=== PATIENT | female | born 1985 | race Caucasian/White ===

== ENCOUNTER 2018-03-11 00:08 | Emergency (ER) | payer MEDICAID, SELFPAY ==
[2018-03-11] VITALS (8 sets, daily range): BP systolic 87–116; BP diastolic 58–88; PULSE 65–95; RESP 14–23; TEMP 36.6; O2SAT 96–100; BMI 24.8
--- NOTE | 2018-03-11 00:24 | ED.DCSUM_ITS ---
- ER Visit Summary Date of Service: 03/11/18 Chief Complaint: Fall History of Present Illness: The patient is a 32 F who presents after a fall. She states that she slipped on the ice about 45 minutes before presentation. She hit her face and right shoulder. Her only complaint however is right shoulder pain. Although she did hit her head she denies any loss of consciousness or amnesia. No headache or vomiting. She is not on any anticoagulation. She denies any chest pain back pain abdominal pain shortness of breath or injury to other extremities. Physical Examination: Afebrile vitals are normal There is ecchymosis to the right cheek and right periorbital ecchymosis no mi dface instability no jaw malocclusion, no bond sign, no palpable skull fracture PERRL, EOMI, no hyphema Neck nontender to palpation Heart regular rate and rhythm Lungs are clear to auscultation Abdomen soft nontender nondistended Patient has painful limited range of motion of the right shoulder, no clavicle tenderness, no pain on palpation of the right elbow forearm wrist or hand normal sensation to light touch brisk capillary refill palpable radial pulse Active full range of motion without pain of the bilateral lower extremities and left upper extremity GCS of 15 with no focal or lateralizing neurological deficits Test Results: Right shoulder x-ray shows an anterior dislocation of the shoulder. Repeat x-ray shows successful reduction. Emergency Department Course and Treatment: I initially attempted the Kramer technique for shoulder reduction without sedation. This was unsuccessful. Therefore an IV was established. Discussed risks and benefits of procedural sedation. Patient consented. Patient underwent procedural sedation with a total of 140 mg of IV propofol. She was successfully reduced using traction countertraction technique. He was placed in a sling and swath. On reevaluation she is alert answers all questions appropriately and is able to sit up on her own. She is neurovascularly intact afterwards with normal sensation in the axillary nerve distribution as well as distally with brisk capillary refill and palpable radial pulse. She was referred to orthopedics for outpatient follow- up. She understands return for new or worsening symptoms. Given a [place] here for pain as well as a prescription for short course of the same. Treatment Plan: [] Disposition: Discharge Impression: Right shoulder dislocation Procedural sedation for shoulder reduction Right shoulder reduction This note was generated with weartolookation software. It may contain incorrect words, spelling, and punctuation that were not noted in review of the chart prior to signing ED Disposition - Plan for ED Patient: Chief Complaint: Fall Referrals: Arin Sage MD [Primary Care Provider] -
--- NOTE | 2018-03-11 00:30 | RAD_ITS ---
HISTORY: FALL. RIGHT SHOULDER PAIN COMPARISON: None FINDINGS: XR right Shoulder Min 2 Views: Anterior dislocation of the right humeral head. No definite Hill-Sachs compression fracture. Remaining visualized bones appear intact. The right AC joint is preserved. RAD/Shoulder min 2 Views IMPRESSION: 1. Anterior dislocation of the right humeral head. No fracture seen. at 0243 Reported and signed by: Esau Valderrama MD Electronically Signed: Esau Valderrama, at 2:41 EST Tel , Service support ,
--- NOTE | 2018-03-11 00:45 | ED.RN ---
PT REQUESTS SOMETHING FOR PAIN. DR. CAMACHO INFORMED.
[2018-03-11] MEDS: Propofol 200 MG/20 ML Vial IV BOLUS (01:27)
--- NOTE | 2018-03-11 01:30 | RAD_ITS ---
HISTORY: RIGHT SHOULDER POST REDUCTION COMPARISON: None FINDINGS: XR right Shoulder Min 2 Views: Anterior dislocation of the right humeral head. 2 views obtained following successful closed reduction of the glenohumeral joint. No fracture or other complication is seen. The remaining visualized bones appear intact. Right AC joint is preserved. RAD/Shoulder min 2 Views IMPRESSION: 1. Successful closed reduction right glenohumeral joint. No fracture or other complication is seen. at 0236 Reported and signed by: Esau Valderrama MD Electronically Signed: Esau Valderrama, at 2:35 EST Tel , Service support ,
[2018-03-11] MEDS: HYDROcodone Bitartrate/Apap 5/325 Tablet PO (01:36)
--- NOTE | 2018-03-11 01:58 | ED.DEP ---
ED Disposition - Plan for ED Patient: Chief Complaint: Fall Instructions: ED Mechanical Fall, ED Dislocation Shoulder Redu Prescriptions: Hydrocodone Bitart/Apap 5-325 [Raymond 5MG-325MG] 1 tab PO Q6H PRN PRN 3 Days #10 tab PRN Reason: Pain Referrals: Arin Sage MD [Primary Care Provider] - Guero Goyal MD [STAFF PHYSICIAN] -
== END 2018-03-11 02:13 | disposition home or self-care (01) ==
PROVIDERS: Emergency Provider Emergency Medicine; Family Provider Internal Medicine; PCP Internal Medicine
DX: S43.014A Anterior dislocation of right humerus, initial encounter (principal); S00.83XA Contusion of other part of head, initial encounter; S00.11XA Contusion of right eyelid and periocular area, initial encounter; W00.0XXA Fall on same level due to ice and snow, initial encounter; Y93.9 Activity, unspecified; Y92.9 Unspecified place or not applicable; Z72.0 Tobacco use
CPT/HCPCS: 23650; 73030; 99285; J7030; A4216

== ENCOUNTER 2018-07-03 05:35 | Day surgery (SDC) | payer MEDICAID, SELFPAY ==
[2018-03-11 00:09] VITALS: BMI 24.8
--- NOTE | 2018-07-03 05:45 | EKG12_ITS ---
Test Reason : PRE-OP Blood Pressure : / mmHG Vent. Rate : 062 BPM Atrial Rate : 062 BPM P-R Int : 152 ms QRS Dur : 078 ms QT Int : 378 ms P-R-T Axes : 044 055 054 degrees QTc Int : 383 ms Normal sinus rhythm Normal ECG No previous ECGs available Confirmed by DERIK MCFARLAND, ISABELLE ([id number]), photography editor STEVE GILES ([id number]) on 07/04/2018 11:29:48 AM Referred By: Florian Quintanilla Confirmed By:ISABELLE MORE MD
[2018-07-03 05:53] VITALS: BP 99/57; PULSE 74; RESP 14; TEMP 36.5; O2SAT 97; BMI 24.4
[2018-07-03 05:58] LABS: Internal QC Validated? YES +Cl - CLEAR BKGD; Pregnancy, Urine Negative Negative
[2018-07-03 06:26] LABS: Hematocrit 39.4 % (37-47); Hemoglobin 13.3 g/dl (12.0-15.0); Mean Corp Hgb Conc 33.8 g/gl (32-36); Mean Corpuscular Hgb 31.2 pg (27.0-32.0); Mean Corpuscular Volume 92.5 fL (81-99); Mean Platelet Vol. 9.9 fl (6.2-12.0); Platelet Count 209 K/mm3 (150-450); RBC Distribution Width CV 12.7 % (11.6-14.6); RBC Distribution Width SD 42.6 fl (35.1-43.9); Red Blood Count 4.26 M/mm3 (4.2-5.4); White Blood Count 7.5 K/mm3 (4.4-11.0)
[2018-07-03 06:34] LABS: Scan Indicated on CBC? Y/N NO
[2018-07-03] MEDS: Cefazolin 2 GM in 0.9% Normal Saline 100 ML IV (07:19)
[2018-07-03] MEDS: Bupiv/Epi 0.5% Mpf 30 ML Vial (07:50)
[2018-07-03] MEDS: Ketorolac 30 MG/ML Syringe IV (09:09)
--- NOTE | 2018-07-03 09:11 | PCM.OPRPT ---
Report of Operation Date of Procedure: 07/03/18 Pre-Operative Diagnosis: Unstable right shoulder with anterior labral tear and Hill-Sachs lesion of posterior humeral head Post-Operative Diagnosis: same Surgery/Procedure Performed:: Arthroscopic Bankhart repair right Description of Surgical Findings:: Surgery: Arthroscopic Bankhart repair right shoulder Pre-op dx: Anterior labral tear, large Hill-Sachs lesion and recurrrent instability right shoulder Post-op Dx: same Surgeon: Dr. Quintanilla Parts Identification Technician: Federico Coy PA-C Anesthesia: General with regional blockade for post op pain management Anesthesiologist: Dr. Rosado Drains: 0 Specimen: none EBL: minimal Complications: none Procedure: With appropriate informed consent and the right shoulder marked in pre-op, regional anesthetic was administered. The patient was brought to OR 1. General anesthesia was administered and pre-op antibiotics were given. The patient was positioned in the lateral decubitus position with the right side up. All bony prominences were well padded. The RUE was prepared and draped in the usual sterile fashion. Time out was taken and the arm was placed laterally with 10# of traction. The posterior portal was established and the diagnostic arthroscopy was begun. There was a large Hill-Sachs lesion on the posterior humeral head. A positive drive thru sign was noted. There were loose bodies in the axillary recess and the anterior labrum was torn from the anterior glenoid. Two anterior portals with cannulae were established. An arthroscopy shaver was used to remove axillary loose bodies and debride loose soft tissue from the anterior labrum. Working through the superior anterior portal, the labral tissue was elevated from the glenoid with a gently curved elevator. A ring curette was used to remove minimal cartilage from the anterior glenoid. Subsequently a rasp was used to prepare the anterior glenoid for repair of labral tissue. Thereafter, a 90 degree suture lasso was used to go through capsule and labral tissue inferiorly. A looped fiber wire suture was then passed using the wire passing suture that had been passed with the 90 degree lasso. A drill hole was made at approximately the 4 o'clock position on this right glenoid. An Arthrex suture tack anchor was then placed in the hole I had drilled to secure the suture and the anterior labrum. This process was then repeated twice more at approximately the 3 and 2 o'clock positions on the glenoid. This nicely resecured the labrum to the anterior glenoid. A drive-thru sign was no longer present. My assistant boys track coach, Mr. Coy, played a vital role in this procedure. He assisted in positioning the patient. He held and maneuvered the arm to provide optimal visualization during the procedure, Ultimately, he closed the surgical wounds, applied the post-op dressing and applied the Ultra sling. The patient was extubated and sent to PACU in stable condition. cream hauler: Federico oCy Type of Anesthesia:: General/Regional Anesthesiologist: Damian Rosado Estimated Blood Loss (mL): minimal - Admit VTE Documentation VTE Present on Admission: No VTE Mechan Device Prophylaxis: SCD's VTE Pharm Prophylaxis ordered?: No Reason prophylaxis not ordered:: Treatment Not Indicated
[2018-07-03 09:17] VITALS: BP 112/45; BP 99/57; PULSE 70; RESP 16; TEMP 36.8; O2SAT 99
[2018-07-03 09:30] VITALS: BP 102/63; BP 99/57; PULSE 70; RESP 16; O2SAT 97
--- NOTE | 2018-07-03 09:37 | OP.PCM_ITS ---
Report of Operation Date of Procedure: 07/03/18 Pre-Operative Diagnosis: Unstable right shoulder with anterior labral tear and Hill-Sachs lesion of posterior humeral head Post-Operative Diagnosis: same Surgery/Procedure Performed:: Arthroscopic Bankhart repair right Description of Surgical Findings:: Surgery: Arthroscopic Bankhart repair right shoulder Pre-op dx: Anterior labral tear, large Hill-Sachs lesion and recurrrent instability right shoulder Post-op Dx: same Surgeon: Dr. Quintanilla Channel Development Manager: Federico Coy PA-C Anesthesia: General with regional blockade for post op pain management Anesthesiologist: Dr. Rosado Drains: 0 Specimen: none EBL: minimal Complications: none Procedure: With appropriate informed consent and the right shoulder marked in pre-op, regional anesthetic was administered. The patient was brought to OR 1. General anesthesia was administered and pre-op antibiotics were given. The patient was positioned in the lateral decubitus position with the right side up. All bony prominences were well padded. The RUE was prepared and draped in the usual sterile fashion. Time out was taken and the arm was placed laterally with 10# of traction. The posterior portal was established and the diagnostic arthroscopy was begun. There was a large Hill-Sachs lesion on the posterior humeral head. A positive drive thru sign was noted. There were loose bodies in the axillary recess and the anterior labrum was torn from the anterior glenoid. Two anterior portals with cannulae were established. An arthroscopy shaver was used to remove axillary loose bodies and debride loose soft tissue from the anterior labrum. Working through the superior anterior portal, the labral tissue was elevated from the glenoid with a gently curved elevator. A ring curette was used to remove minimal cartilage from the anterior glenoid. Subsequently a rasp was used to prepare the anterior glenoid for repair of labral tissue. Thereafter, a 90 degree suture lasso was used to go through capsule and labral tissue inferiorly. A looped fiber wire suture was then passed using the wire passing suture that had been passed with the 90 degree lasso. A drill hole was made at approximately the 4 o'clock position on this right glenoid. An Arthrex suture tack anchor was then placed in the hole I had drilled to secure the suture and the anterior labrum. This process was then repeated twice more at approximately the 3 and 2 o'clock positions on the glenoid. This nicely resecured the labrum to the anterior glenoid. A drive-thru sign was no longer present. My assistant loan processor, Mr. Coy, played a vital role in this procedure. He assisted in positioning the patient. He held and maneuvered the arm to provide optimal visualization during the procedure, Ultimately, he closed the surgical wounds, applied the post-op dressing and applied the Ultra sling. The patient was extubated and sent to PACU in stable condition. account executive healthcare: Federico Coy Type of Anesthesia:: General/Regional Anesthesiologist: Damian Rosado Estimated Blood Loss (mL): minimal - Admit VTE Documentation VTE Present on Admission: No VTE Mechan Device Prophylaxis: SCD's VTE Pharm Prophylaxis ordered?: No Reason prophylaxis not ordered:: Treatment Not Indicated
[2018-07-03 09:45] VITALS: BP 99/57; BP 99/66; PULSE 68; RESP 16; O2SAT 93
[2018-07-03 10:00] VITALS: BP 100/64; BP 99/57; PULSE 63; RESP 16; TEMP 36.5; O2SAT 93
[2018-07-03 10:56] VITALS: BP 99/52; BP 99/57; PULSE 66; RESP 16; TEMP 36.7; O2SAT 94
== END 2018-07-03 11:31 | disposition home or self-care (01) ==
LOC: SDC 05:36 → AC 05:37
PROVIDERS: Anesthesiology; Family Provider Internal Medicine; PCP Internal Medicine; Referring Provider Orthopaedic Surgery; Visit Provider Orthopaedic Surgery
PROC: (CPT 29806; principal; 2018-07-03 06:55)
DX: S43.014A Anterior dislocation of right humerus, initial encounter (principal); M25.311 Other instability, right shoulder; S43.491A Other sprain of right shoulder joint, initial encounter; X58.XXXA Exposure to other specified factors, initial encounter; F41.9 Anxiety disorder, unspecified; F32.9 Major depressive disorder, single episode, unspecified; F17.210 Nicotine dependence, cigarettes, uncomplicated
CPT/HCPCS: 01630; 29806; 64415; 36415; 81025; 85027; 93005; J7120; J2405

== ENCOUNTER 2019-02-17 13:27 | Emergency (ER) | payer MEDICAID, SELFPAY ==
[2019-02-17 13:28] VITALS: BP 122/78; PULSE 106; RESP 18; TEMP 36.6; O2SAT 98; BMI 22.8
[2019-02-17 14:37] LABS: Mucous, Urine 0 SEEN /hpf (<or=2+); Red Blood Cells-Urine 0 SEEN /hpf (0-5)
[2019-02-17 14:43] LABS: Color, Urine Yellow (Yellow); Glucose, Dipstick Normal (Normal); Ketone-Dipstick 15 mg/dl (Negative); Leukocyte Esterase-Dipstick 500 /ul (Negative); Nitrite-Dipstick Positive (Negative); Occult Blood-Urine 250 /ul (Negative); Protein-Dipstick 30 mg/dl (Negative); Specific Gravity, Urine 1.015 (1.002-1.030); Urine Bilirubin Dipstick 1 mg/dL (Negative); Urine Clarity Sl. Cloudy (Clear); Urine Urobilinogen 1 mg/dl (Normal); Urine pH 6.5 (5.0 - 8.0)
[2019-02-17 14:45] LABS: Bacteria 2+ /hpf (None Seen); Squamous Epithelial Cells - UA 10-25 SEEN /hpf (5-10); White Blood Cells >100 SEEN /hpf (0-5)
--- NOTE | 2019-02-17 14:59 | ED.DCSUM_ITS ---
- ER Visit Summary Date of Service: 02/17/19 Chief Complaint: Fever History of Present Illness: The patient is a 33 F who presents with a fever. She has had symptoms like this for 4 days. She feels sweaty but has not documented a temperature at home. She does not have a thermometer. She took Tylenol and ibuprofen which has been helping. She states that when she urinates it feels funny. No cough. She did not get a flu shot this year. Denies any other symptoms. Physical Examination: Vital signs reviewed. HEENT exam unremarkable. Heart is regular rate and rhythm without murmurs. Lungs are clear to auscultation. Abdomen is soft and nontender. Extremities reveal no edema. Skin exam normal. Neurologic exam normal. Test Results: Influenza negative. UA reveals UTI Emergency Department Course and Treatment: Patient does have evidence of a UTI. I will treat her with Bactrim for 7 days. She will use Tylenol or ibuprofen at home. Treatment Plan: [] Disposition: Discharge Impression: UTI This note was generated with [employer] dictation software. It may contain incorrect words, spelling, and punctuation that were not noted in review of the chart prior to signing ED Disposition - Plan for ED Patient: Referrals: Arin Sage MD [Primary Care Provider] -
--- NOTE | 2019-02-17 15:00 | DCINST.ED_ITS ---
ED Disposition - Plan for ED Patient: Disposition: Home or Assisted Living Instructions: Understanding Urinary Tract Infections (UTIs) Prescriptions: Smz/Tmp Ds [Bactrim Ds] 1 tab PO BID #14 tab Transmission Status: Pending to [facility] #[id number] Referrals: Arin Sage MD [Primary Care Provider] - Additional Instructions: Your prescription was electronically transferred to [facility]
[2019-02-17] MEDS: Smz/Tmp Ds Tablet 1 TABLET PO (15:12)
--- NOTE | 2019-02-17 15:14 | ED.RN ---
DISCHARGE INSTRUCTIONS GIVEN TO AND REVIEWED WITH PATIENT, PATIENT DENIES QUESTIONS OR CONCERNS AND VOICES UNDERSTANDING OF DISCHARGE INSTRUCTIONS. PT AMBULATES OUT OF ROOM WITHOUT DIFFICULTY.
== END 2019-02-17 15:15 | disposition home or self-care (01) ==
PROVIDERS: Emergency Provider Emergency Medicine; Family Provider Internal Medicine; PCP Internal Medicine
DX: N39.0 Urinary tract infection, site not specified (principal); Z72.0 Tobacco use
CPT/HCPCS: 81001; 87804; 99283

== ENCOUNTER 2019-03-10 15:07 | Emergency (ER) | payer MEDICAID, SELFPAY ==
[2019-03-10 15:08] VITALS: BP 106/69; PULSE 112; RESP 16; TEMP 37.2; O2SAT 98; BMI 22.8
--- NOTE | 2019-03-10 15:33 | ED.VISSUMM ---
- ER Visit Summary Date of Service: 03/10/19 Chief Complaint: I think I have another UTI History of Present Illness: The patient is a 33 F recent UTI treated with 5 to 7 days of Bactrim twice daily. Said her symptoms got better. She developed a post antibiotic vaginal yeast infection for which she was placed on Diflucan. Now states she thinks her urinary tract symptoms have returned. She denies any recent hospitalization. She has had urinary frequency but no dysuria. No gross hematuria. Says she has some mild right flank discomfort with a low-grade fever 100. Today went to the urgent care who referred her to the emergency department. She denies nausea, vomiting or diarrhea. States her last menstrual period was 2 weeks ago. Denies any vaginal bleeding or discharge. Physical Examination: Young female no acute distress. Vital signs are stable and afebrile. HEENT exam unremarkable. Moist oral membranes. Neck nontender. No lymphadenopathy. Lungs clear to auscultation bilaterally. Heart regular rhythm no murmur rate about 100. Abdomen is soft. Nondistended. Normal bowel sounds. Very minimal deep right upper quadrant tenderness. No Eaton sign. No McBurney's point tenderness. No obstruction. Patient moving all 4 extremities. No rash. No edema. Back nontender. No CVA tenderness. Neurologically she is awake alert with no focal motor deficits. Test Results: CBC showed white count of 11. Hemoglobin 11.8. No bands. Chemistries unremarkable normal creatinine and gap. Liver enzymes alk phos 149. ALT 102. UA shows greater than white cells. 25-50 reds positive nitrates. It is contaminated but with her symptoms I think is consistent with a UTI. Serum test negative. Urine culture was also sent. Emergency Department Course and Treatment: Labs to be obtained along with a urinalysis. Her pain is right upper quadrant but she is concerned she has a UTI. Repeat exam patient doing well at 1718 p.m. She and I discussed her test results. She will be given 1 dose of Keflex p.o. here. Treatment Plan: Treat her UTI with Keflex twice daily for 10 days. And urine culture pending. Follow-up with your doctor. Disposition: Discharge Impression: Acute UTI This note was generated with CardiaLenation software. It may contain incorrect words, spelling, and punctuation that were not noted in review of the chart prior to signing ED Disposition - Plan for ED Patient: Referrals: Arin Sage MD [Primary Care Provider] -
[2019-03-10 16:04] LABS: Mucous, Urine 0 SEEN /hpf (<or=2+)
[2019-03-10 16:07] LABS: Color, Urine Yellow (Yellow); Glucose, Dipstick Normal (Normal); Ketone-Dipstick Negative (Negative); Leukocyte Esterase-Dipstick 500 /ul (Negative); Nitrite-Dipstick Positive (Negative); Occult Blood-Urine 50 /ul (Negative); Protein-Dipstick 30 mg/dl (Negative); Urine Bilirubin Dipstick Negative (Negative); Urine Clarity Cloudy (Clear); Urine Urobilinogen Normal (Normal); Urine pH 6.5 (5.0 - 8.0)
[2019-03-10 16:12] LABS: Absolute Neutrophil Count 8.1 X10^3/uL (2.0-7.7); Basophil# 0.03 X10^3/uL; Basophil% 0.3 % (0-1); Eosinophil# 0.03 X10^3/uL; Eosinophils% 0.3 % (0-5); Hematocrit 35.8 % (37-47); Hemoglobin 11.8 g/dL (12.0-15.0); Lymphocyte % 18.1 % (19-41); Mean Corpuscular Hgb 29.5 pg (27.0-32.0); Mean Corpuscular Volume 89.5 fL (81-99); Mean Platelet Vol. 9.5 fl (6.2-12.0); Monocyte# 0.87 X10^3/uL; Monocyte% 7.9 % (0-10); NRBC Flagged by Analyzer 0 % (0-5); Neutrophil # 8.11 X10^3/uL (2.7-7.7); Platelet Count 227 K/mm3 (150-450); RBC Distribution Width SD 39.6 fl (35.1-43.9); White Blood Count 11.1 K/mm3 (4.4-11.0)
[2019-03-10 16:15] LABS: Red Blood Cells-Urine 0-5 SEEN /hpf (0-5); Squamous Epithelial Cells - UA 25-50 SEEN /hpf (5-10); White Blood Cells >100 SEEN /hpf (0-5)
[2019-03-10 16:16] LABS: Transitional Epithelial - Ur 0-5 SEEN /hpf (0-5)
[2019-03-10 16:17] LABS: Bacteria 3+ /hpf (None Seen)
[2019-03-10 16:32] LABS: Internal QC Validated? YES +Cl - CLEAR BKGD; Pregnancy, Serum, hCG Quali. NEGATIVE Negative
[2019-03-10 16:37] LABS: AST(SGOT) 50 U/L (15-37); Alanine Aminotransfer ALT/SGPT 102 U/L (13-56); Albumin, Serum 3.3 g/dL (3.2-5.0); Alkaline Phosphatase 149 U/L (45-117); Anion Gap 4 (5-15); BUN 8 mg/dL (7-18); BUN/Creat Ratio 9.7 RATIO (10-20); Bilirubin, Direct 0.18 mg/dL (0.00-0.30); Calcium,Total 8.9 mg/dL (8.5-10.1); Chloride 108 mmol/L (98-107); Creatinine, Serum 0.82 mg/dL (0.55-1.02); EST Glomerular Filtration Rate 85 mL/min (>60); Est Glom Filt Rate - Afr Amer 102 mL/min (>60); Estimated Creatinine Clearance 77.18 ml/min; Globulin 3.8 g/dL (2.2-4.2); Glucose 101 mg/dL (74-106); Lipase 95 U/L (73-393); Potassium 3.5 mmol/L (3.5-5.1); Protein, Total 7.1 g/dL (6.4-8.2); Sodium Level 139 mmol/L (136-145)
--- NOTE | 2019-03-10 17:20 | ED.DEP ---
ED Disposition - Plan for ED Patient: Disposition: Home or Assisted Living Instructions: Bladder Infection, Female (Adult) Prescriptions: Fluconazole [Diflucan] 200 mg PO X1 #1 tab Prescription Printed Cephalexin [Keflex] 500 mg PO Q6 #40 cap Prescription Printed Referrals: Arin Sage MD [Primary Care Provider] - 3-5 Days if not improving Additional Instructions: Keflex 1 pill 4 times a day for 10 days. Finish antibiotics. Follow-up with your doctor if not improving. Plenty of fluids and cranberry juice.
[2019-03-10] MEDS: Cephalexin 250 MG Capsule 500 MG PO (17:27)
[2019-03-10 17:31] VITALS: BP 112/68; PULSE 97; RESP 16; O2SAT 98
== END 2019-03-10 17:31 | disposition home or self-care (01) ==
PROVIDERS: Emergency Provider Emergency Medicine; PCP Internal Medicine
DX: N39.0 Urinary tract infection, site not specified (principal); Z87.440 Personal history of urinary (tract) infections; Z72.0 Tobacco use
CPT/HCPCS: 80048; 80076; 81001; 83690; 84703; 85025; 87077; 87086; 87088; 87186; 99284; A4216

== ENCOUNTER 2019-09-24 20:59 | Emergency (ER) | payer MEDICAID, SELFPAY ==
[2019-09-24 20:59] VITALS: BP 126/74; PULSE 96; RESP 16; TEMP 36.8; O2SAT 98; BMI 24.6
[2019-09-24 21:18] LABS: Color, Urine Yellow (Yellow); Glucose, Dipstick Normal (Normal); Ketone-Dipstick 5 mg/dl (Negative); Leukocyte Esterase-Dipstick 100 /ul (Negative); Nitrite-Dipstick Negative (Negative); Occult Blood-Urine 50 /ul (Negative); Protein-Dipstick 15 mg/dl (Negative); Urine Bilirubin Dipstick Negative (Negative); Urine Clarity Clear (Clear); Urine Urobilinogen 1 mg/dl (Normal)
[2019-09-24 21:20] LABS: Internal QC Validated? YES +Cl - CLEAR BKGD
[2019-09-24 21:21] LABS: Pregnancy, Urine Negative Negative
[2019-09-24 21:24] LABS: Squamous Epithelial Cells - UA 0-5 SEEN /hpf (5-10); White Blood Cells 0-5 SEEN /hpf (0-5)
[2019-09-24 21:25] LABS: Bacteria RARE /hpf (None Seen); Mucous, Urine RARE /hpf (<or=2+); Red Blood Cells-Urine 0-5 SEEN /hpf (0-5)
[2019-09-24 22:58] VITALS: BP 126/74; PULSE 96; RESP 16; TEMP 36.8; O2SAT 98
--- NOTE | 2019-09-24 23:03 | ED.RN ---
CALLED AT [phone] FROM TRIAGE, PT NOT IN WAITING ROOM OR HALLWAY.
== END 2019-09-24 23:00 | disposition left against medical advice (07) ==
LOC: ED 23:17
PROVIDERS: Emergency Provider Emergency Medicine; PCP Internal Medicine
DX: Z53.21 Procedure and treatment not carried out due to patient leaving prior to being seen by health care provider (principal)
CPT/HCPCS: 81001; 81025

== ENCOUNTER → 2020-10-07 | Outpatient (CLI) | payer MEDICAID, SELFPAY | END | disposition home or self-care (01) | LOC: LABSPEC 15:57 | PROVIDERS: PCP Internal Medicine; Visit Provider Physician Assistant Surgical | DX: R51.9 Headache, unspecified (principal); R53.83 Other fatigue | CPT/HCPCS: 87635; U0005; U0003 ==

== ENCOUNTER 2021-11-20 13:01 | Day surgery (SDC) | payer MEDICAID, SELFPAY ==
[2021-11-18 11:47] LABS: Hematocrit 40.5 % (37-47); Hemoglobin 13.6 g/dL (12.0-15.0); Mean Corp Hgb Conc 33.6 g/dL (32-36); Mean Corpuscular Hgb 30.7 pg (27.0-32.0); Mean Corpuscular Volume 91.4 fL (81-99); Mean Platelet Vol. 9.5 fl (6.2-12.0); Platelet Count 234 K/mm3 (150-450); RBC Distribution Width CV 12.5 % (11.6-14.6); RBC Distribution Width SD 41.9 fl (35.1-43.9); Red Blood Count 4.43 M/mm3 (4.2-5.4)
[2021-11-20] VITALS (7 sets, daily range): BP systolic 98–118; BP diastolic 58–69; PULSE 63–85; RESP 12–16; TEMP 36.4–36.8; O2SAT 97–100; BMI 27.8
--- NOTE | 2021-11-20 | IMM_PTH ---
PATIENT: PRACHI PEREZ [place] [facility] [place][id number] AGE/SX: 36/F ROOM: RE11/20/[address]: Dr. Italia Velez DO : 1985 BED: DIS: 11/20/2021 SPEC #: [id number] RECD: 11/24/21 13:53 STATUS: RYNE REQ #: [id number] HOMA: 11/20/21 00:[address]: Italia Velez DEPT: IMMUNOHISTOCHEMISTRY RECD BY: Mariam Boone ENTERED: 11/24/21 13:54 SP TYPE: IMMUNO OTHR DR: Dr. Arin Sage MD Tissues: B - Uterine cervix, NOS Procedures: p16 (initial) KI-67 (add) P16 (add) PHYSICIAN & INSTITUTION [place] [id number] SPECIMEN INFORMATION: Tissue Source: B ? Cervical biopsy Clinical Info: NATALIE II, positive margins on LEEP, HSIL Specimen Number: [id number] B1, B3 & B6 CPT code: 70589, 99165 x5 METHODOLOGY: Deparaffinized sections of prefer/formalin-fixed tissue or PAP/DQ stained slides are incubated with monoclonal/polyclonal antibodies/oligonucleotide probes. Localization is made via biotin free immunoperoxidase method. Appropriate controls are performed and reacted as expected. Results on target cell population are indicated in the following table: RESULTS: ANTIBODY / CLONE RESULT Block B1 P16 (E6H4) positive, block-like Ki-67 (30-9) positive, moderate Block B3 P16 (E6H4) positive, block-like Ki-67 (30-9) positive, moderate Block B6 P16 (E6H4) positive, block-like Ki-67 (30-9) positive, moderate These tests were developed and their performance characteristics determined by [facility]. They may not have been cleared or approved by the U.S. Food and Drug Administration. The FDA has determined that such clearance or approval is not necessary. The above immunohistochemical/dualISH markers are ordered and reviewed by the Pathologist. 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 AM:milind 11/25/2021
[2021-11-20 13:36] LABS: Internal QC Validated? YES +Cl - CLEAR BKGD; Pregnancy, Urine Negative Negative
--- NOTE | 2021-11-20 14:30 | ECC_PTH ---
PATIENT: PRCAHI PEREZ [place] [facility] [place][id number] AGE/SX: 36/F ROOM: RE11/20/[address]: Dr. Italia Velez DO : 1985 BED: DIS: 11/20/2021 SPEC #: [id number] RECD: 11/23/21 07:33 STATUS: RYNE DIVINE #: [id number] HOMA: 11/20/21 14:[address]: Italia Velez DEPT: SURGICAL PATHOLOGY RECD BY: Getachew Ruiz ENTERED: 11/23/21 08:28 SP TYPE: ECC OT DR: Dr. Arin Sage MD Tissues: A - Endocervical B - UTERINE CERVIX LEEP Procedures: Surgery Specimen Level IV Surgery Specimen Level V HEADER OPERATION: Cold knife conization and endocervical curettage PRE-OP DIAGNOSIS: NATALIE II, positive margins on LEEP, HSIL pap TISSUE SUBMITTED: A ? Endocervical curettings, B ? Cervical biopsy, marked at 12 o?clock MICROSCOPIC DIAGNOSIS A. Endocervix, curettings: Scant strips of benign superficial glandular mucosa. B. 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 Margins of excision are free of dysplasia. See comment. AM:milind 11/24/2021 COMMENT Results from immunohistochemistry ([id number]) for surrogate HPV marker (p16) will be reported separately. Case has been reviewed in consultation with Dr. Munoz who concurs with the above diagnosis. IDC:SJ MICROSCOPIC DESCRIPTION Slides are reviewed. GROSS DESCRIPTION A - Received in fixative is one container labeled with the patient's name and designated endocervical curettings. The specimen consists of multiple fragments of hemorrhagic soft tissue that in aggregate measure 0.5 x 0.5 x 0.1 cm. The specimen is totally submitted in one cassette. B - Received in fixative is one container labeled with the patient's name and designated cervical biopsy marked at 12 o'clock. The specimen consists of a thurston, indurated piece of LEEP conization measuring 3 x 2.5 x 2.5 cm. No mucosal lesion is identified. Nonmucosal surface is inked black. The endocervical margin is inked blue. The specimen is oriented with a suture at 12 o?clock. The specimen is radially sectioned and submitted entirely in seven cassettes as follows: 1 & 2 - 12 to 3 o?clock, 3 - 3 to 6 o?clock, 4 & 5 - 6 to 9 o?clock, 6 & 7 - 9 to 12 o?clock. / SJ:milind 11/23/2021 TC:0 CPT: 92698, 97449
[2021-11-20] MEDS: FERRIC SUBSULFATE 8 GM SOLN (15:05)
[2021-11-20] MEDS: Lidocaine 1% /Epi 1:100 (20ml) 20 ML Vial (15:50)
--- NOTE | 2021-11-20 16:08 | DCINST_ITS ---
Discharge Instructions Diet Discharge Diet: No restrictions Activity Discharge Activity: May Drive (once you are more than 24 hours out from surgery) and May Shower (once you are more than 24 hours out from surgery) May resume sexual activity in: 4 weeks (no tampons, intercourse, or soaking in water for 4 weeks) Weight Bearing Status: Weight bearing as tolerated Lifting Restrictions: no restrictions Dressing / Incision Call your doctor if you observe: Fever of 101 or Higher, Coldness, Increased Pain, Numbness or Tingling, Change in Color, Inability to urinate, Inability to have a bowel movement, Using more than 1 pad per hour, Shortness of breath, Dizziness, Fainting spells, Swelling in the ankles, Chest pain, Increased palpitations (irregular heartbeat), Calf discomfort and Uncontrolled pain Follow Up Care Please Follow Up With: Italia Velez DO When: 1-2 weeks Test Results: Test results from this visit will be discussed in further detail at your follow- up appointment, if applicable. Discharge Plan Admission Primary Reason for Your Visit: surgery Attending Provider: Italia Velez Primary Care Provider: Arin Sage Discharge Orders/Prescriptions Prescriptions: New ibuprofen 600 mg tablet 600 mg PO Q6H PRN (Reason: pain) Qty: 30 0RF Continued loratadine 10 mg tablet 10 mg PO DAILY Label Comments: Take 1 tablet by mouth once daily. buspirone 10 mg tablet 5 mg PO TID topiramate 25 mg tablet 25 mg PO QHS Label Comments: Take 1 tablet by mouth daily at bedtime. fluticasone propionate [Flonase Allergy Relief] 50 mcg/actuation [place],Suspension 1 spray INTRANASAL DAILY Rx Instructions: administer into each nostril bupropion HCl [Wellbutrin XL] 300 mg Tablet Extended Release 24 Hr 300 mg PO DAILY famotidine [Pepcid] 20 mg Tablet 20 mg PO PRN PRN (Reason: GERD) Referrals / Follow Up: Arin Sage MD [Primary Care Provider] - Disposition Disposition (needs filled in before D/C Order can be placed): Home, Self Care
--- NOTE | 2021-11-20 16:11 | PCM.OPRPT ---
Problems Associated Problem List Diagnoses (1) High grade squamous intraepithelial cervical dysplasia: Report of Operation Date of Procedure: 11/20/21 Pre-Operative Diagnosis: Prior LEEP with high grade cervical dysplasia and positive margins HSIL pap and positive HPV status post LEEP Post-Operative Diagnosis: As above Surgery/Procedure Performed:: Cervical CKC with ECC Description of Surgical Findings:: Grossly normal appearing vulva, vagina, and cervix. Good descent of uterus and cervix Surgeon: Italia Velez felt hat mellowing machine operator: None Type of Anesthesia: MAC Special Medications: None Specimen's removed: Cervical biopsy marked at 12 Endocervical curettings Drains: None Estimated Blood Loss (mL): < 50 Fluids Replaced: See anesthesia record Description of Procedure: The patient was taken to the operating room where MAC anesthesia was found to be adequate. She was prepped and draped in the dorsal llithotomy position using yellowfin stirrups. A weighted speculum was placed to expose the cervix. The anterior lip of the cervix was grasped with a single-tooth tenaculum. 10 cc of local was infiltrated circumferentially around the cervix until blanching was noted. Using an 11 blade scalpel, a cervical cone biopsy was performed in usual fashion. Using an Allis clamp on the cervical biopsy, and curved Talley scissors, the cervical cone biopsy was removed and marked with suture at the 12 o'clock position. The cervical biopsy was sent to pathology for review. Using a rollerball, the cervical bed was cauterized and good hemostasis was noted. Monsel's solution was placed. The single tenaculum and weighted speculum were removed from the vagina. Vaginal sweep was performed. Instrument, sponge, needle counts were correct. The patient was taken to the recovery room in stable condition. Grafts/Implants Used: None Procedure Start Time: 15:50 Procedure Stop Time: 16:04 Complications None Admit VTE Documentation VTE Present on Admission: No VTE Mechan Device Prophylaxis: SCD's
== END 2021-11-20 16:58 | disposition home or self-care (01) ==
LOC: SDC 13:03 → AC 13:05
PROVIDERS: PCP Internal Medicine; Referring Provider Obstetrics & Gynecology; Visit Provider Obstetrics & Gynecology
PROC: 0UBC7ZZ Excision of Cervix, Via Natural or Artificial Opening (ICD-10-PCS; CPT 57520; principal; 2021-11-20 14:15)
DX: N87.1 Moderate cervical dysplasia (principal); N72 Inflammatory disease of cervix uteri; F41.9 Anxiety disorder, unspecified; F32.A Depression, unspecified; Z87.898 Personal history of other specified conditions; F17.210 Nicotine dependence, cigarettes, uncomplicated; Z79.899 Other long term (current) drug therapy
CPT/HCPCS: 57520; 00940; 36415; 81025; 85027; 86850; 86900; 86901; 88305; 88307; 88341; 88342; J7120; J2405